=== PATIENT | female | born 1955 | race Caucasian/White ===

== ENCOUNTER → 2017-01-04 | Outpatient (CLI) | payer OTHER | LOC: FIMAGING 15:54 | PROVIDERS: ATTEND Orthopaedic Surgery Orthopaedic Surgery of the Spine | DX: M47.896 Other spondylosis, lumbar region (principal); M43.16 Spondylolisthesis, lumbar region; M53.86 Other specified dorsopathies, lumbar region; M16.10 Unilateral primary osteoarthritis, unspecified hip; Z98.1 Arthrodesis status ==

== ENCOUNTER → 2017-07-07 | Outpatient (CLI) | payer OTHER | LOC: FIMAGING 11:54 | PROVIDERS: ATTEND Orthopaedic Surgery Hand Surgery | DX: S63.681A Other sprain of right thumb, initial encounter (principal); S63.642A Sprain of metacarpophalangeal joint of left thumb, initial encounter; M18.11 Unilateral primary osteoarthritis of first carpometacarpal joint, right hand ==